=== PATIENT | female | born 2000 | race Caucasian/White ===

== ENCOUNTER 2019-06-27 19:14 | Emergency (ER) | payer BC ==
[~2019-06-27] VITALS: Ht 157.5 cm; Wt 51.8 kg
[2019-06-27 21:59] LABS: STREP SCREEN NEGATIVE
[2019-06-27 22:18] VITALS: BP 135/71; PULSE 75; TEMP 97.6
== END 2019-06-27 22:27 | disposition home or self-care (01) ==
LOC: COL.ER 19:14
PROVIDERS: Nurse Practitioner
DX: J02.9 Acute pharyngitis, unspecified (principal); J45.909 Unspecified asthma, uncomplicated